=== PATIENT | female | born 1945 | race Caucasian/White ===

== ENCOUNTER → 2023-02-02 10:30 | Outpatient (BNVA) | payer MEDICARE, OTHER, SELFPAY | PROVIDERS: PCP Internal Medicine; Visit Provider Internal Medicine Rheumatology | DX: Z79.899 Other long term (current) drug therapy (principal); M19.90 Unspecified osteoarthritis, unspecified site; E11.9 Type 2 diabetes mellitus without complications; M19.041 Primary osteoarthritis, right hand; M19.042 Primary osteoarthritis, left hand; L60.8 Other nail disorders | CPT/HCPCS: 36415; 73130; 73630; 80076; 82306; 82565; 83036; 85025; 85651; 86140; 86200; 86431; 99204 ==

== ENCOUNTER → 2023-06-05 13:25 | Outpatient (BNVA) | payer MEDICARE, OTHER, SELFPAY | PROVIDERS: PCP Internal Medicine; Visit Provider Internal Medicine Rheumatology | DX: M19.041 Primary osteoarthritis, right hand (principal); M19.042 Primary osteoarthritis, left hand; Z79.899 Other long term (current) drug therapy; L60.8 Other nail disorders; E11.9 Type 2 diabetes mellitus without complications; M05.79 Rheumatoid arthritis with rheumatoid factor of multiple sites without organ or systems involvement | CPT/HCPCS: 36415; 80076; 82565; 85025; 86140; 99214 ==